=== PATIENT | male | born 1995 | race Caucasian/White ===

== ENCOUNTER 2024-02-23 13:44 | Emergency (ER) | payer OTHER ==
[2024-02-23 13:47] VITALS: BP 119/72; PULSE 69; RESP 17; TEMP 98; BMI 21.2
[2024-02-23] MEDS ORDERED: METOCLOPRAMIDE HCL INJECTION 10 MG/2 ML VIAL ONE (15:10)
[2024-02-23] MEDS ORDERED: ACETAMINOPHEN INJECTION 100 ML IVPB ONE (15:10)
[2024-02-23] MEDS: ACETAMINOPHEN 1000 MG/100 ML BAG IVPB ONE (15:21)
[2024-02-23] MEDS: METOCLOPRAMIDE HCL INJECTION 10 MG/2 ML VIAL IVPB ONE (15:21)
[2024-02-23] MEDS: LACTATED RINGERS SOLUTION 1000 ML INFUS.BAG IV ONE (15:21)
[2024-02-23] MEDS ORDERED: DOXYCYCLINE HYCLATE 100 MG CAPSULE PO ONE (17:32)
[2024-02-23] MEDS: DOXYCYCLINE HYCLATE 100 MG CAPSULE PO ONE (17:34)
== END 2024-02-23 17:43 | disposition home or self-care (01) ==
LOC: JERFT 13:44
PROC: 3E033NZ Introduction of Analgesics, Hypnotics, Sedatives into Peripheral Vein, Percutaneous Approach (ICD-10-PCS; principal; 2024-02-23)
PROC: 3E033GC Introduction of Other Therapeutic Substance into Peripheral Vein, Percutaneous Approach (ICD-10-PCS; 2024-02-23)
DX: R51.9 Headache, unspecified (principal); R50.9 Fever, unspecified; J32.9 Chronic sinusitis, unspecified
CPT/HCPCS: 70450-TC; 99284-25; J0131